=== PATIENT | male | born 1970 | race Caucasian/White ===

== ENCOUNTER → 2018-06-10 | Outpatient (CLI) | payer OTHER | LOC: FIMAGING 09:21 | PROVIDERS: ATTEND Internal Medicine Cardiovascular Disease | DX: Z13.9 Encounter for screening, unspecified (principal); I70.0 Atherosclerosis of aorta; Z82.49 Family history of ischemic heart disease and other diseases of the circulatory system ==

== ENCOUNTER 2018-07-07 09:09 | Day surgery (SDC) | payer BC, OTHER ==
[2018-07-07] MEDS ORDERED: BENZOCAINE UNIT DOSE SPRAY HURRICAINE MM ONE (09:15)
[2018-07-07] MEDS ORDERED: NS 500 ML IV ONE (09:15)
[2018-07-07] MEDS ORDERED: MIDAZOLAM 2 MG/2 ML VIAL IVP ONE (09:15)
[2018-07-07] MEDS ORDERED: fentaNYL 100 MCG/2 ML INJ IVP ONE (09:15)
[2018-07-07] MEDS ORDERED: LORazepam 1 MG TAB ONE (10:03)
[2018-07-07] MEDS ORDERED: LORazepam 2 MG/ML INJ IVP ONE (10:30)
--- NOTE | 2018-07-07 10:44 | PDHPUP ---
History & Physical Update H&P update statement: This history and physical update is based on an assessment of the patient which was completed after admission or registration (within 24 hours), but prior to the surgery/procedure. H&P update: H&P reviewed & patient examined, no change in patient's condition since H&P completed
--- NOTE | 2018-07-07 11:16 | PDANEPAE ---
ANE History of Present Illness 47 yo for janae ANE Past Medical History - Cardiovascular History Hx Hypertension: No Hx Arrhythmias: No Hx Chest Pain: No Hx Coronary Artery / Peripheral Vascular Disease: No Hx CHF / Valvular Disease: No Hx Palpitations: No - Pulmonary History Hx COPD: No Hx Asthma/Reactive Airway Disease: No Hx Recent Upper Respiratory Infection: No Hx Oxygen in Use at Home: No Hx Sleep Apnea: No - Neurologic History Neurologic History Comment: PTSD - Endocrine History Hx Diabetes: No ANE Review of Systems Review of Systems: - Exercise capacity METS (RN): 4 METS ANE Patient History - Allergies Allergies/Adverse Reactions: Cephalosporins Allergy (Verified 09/07/13 22:05) Sulfa (Sulfonamide Antibiotics) Allergy (Verified 09/07/13 22:05) - Home Medications Home Medications: Abilify 07/07/18 [Last Taken 07/06/18 11:00] Aspirin 81mg (*) 07/07/18 [Last Taken 07/06/18 14:00] Atorvastatin Calcium 07/07/18 [Last Taken 07/06/18 23:00] Clonazepam 07/07/18 [Last Taken 07/06/18 08:00] Gabapentin 07/07/18 [Last Taken 07/06/18 20:00] Prazosin HCl 07/07/18 [Last Taken 07/06/18 23:00] - NPO status NPO Status: no food or drink >8 hours - Anes Hx Anes Hx: no prior problems - Smoking Hx Smoking Status: Former smoker ANE Labs/Vital Signs - Vital Signs Height: 6 ft 2 in Weight: 93.894 kg ANE Physical Exam - Airway Neck exam: FROM Mallampati Score: Class 2 - Pulmonary Pulmonary: no respiratory distress - Cardiovascular Cardiovascular: regular rate and rhythym - ASA Status ASA Status: II ANE Anesthesia Plan Anesthesia Plan: GA with mask
[2018-07-07] MEDS ORDERED: PROPOFOL 200 MG/20 ML VIAL ONE (11:20)
--- NOTE | 2018-07-07 12:04 | POSTANESTH ---
Post Anesthetic Evaluation Cardiovascular Status: Normal, Stable Respiratory Status: Normal, Stable Level of Consciousness/Mental Status: Can Participate in Eval Pain Control: Adequate, Prn Tx Ordered Nausea/Vomiting Control: Adequate, Prn Tx Ordered Complications Possibly Related to Anesthesia: None Noted
--- NOTE | 2018-07-14 09:10 | ECHO ---
[email or web address] [address] [address] Main: [phone] Fax: Transesophageal Echocardiography Name: GIOVANNI NIXON MR#: [id number] Study Date: 07/07/2018 Study Time: 11:36 AM Date of : 1970 Age: 47 year(s) Height: ( ) Weight: ( ) BSA: Gender: Male Examination: JEFF Indication: Eval interatrial septum Image Quality: Contrast: Requested by: Ángel Galicia Heart Rate: Rhythm: Normal sinus rhythm BP: / Procedure Staff Meat Stringer: David Olvera RDCS Reading Physician: Ángel Galicia MD Requesting Provider: JEFF Exam Details Conclusions: The patient was in sinus rhythm at the time the study . Normal left ventricular size and function. LVEF estimated at 60 65% with normal wall motion. Normal LA, RA and RV dimensions. Two-dimensional imaging of the interatrial septum suggest a patent [place]. This is confirmed with agitated saline contrast indicating very small [id number]-inla shunt. Mild P2 prolapse of the mitral valve. Mild mitral regurgitation. Morphologically normal aortic, tricuspid and pulmonic valves without significant stenosis or insufficiency. Left atrial appendage free of thrombus. No evidence of pericardial effusion. Measurements: Chambers Valvular Assessment AV/MV Valvular Assessment TV/PV Normal Normal Normal Name Value Range Name Value Range Name Value Range Additional Measurements: Findings: Left Ventricle: Normal global systolic LV function. Right Ventricle: Normal RV function. Left Atrium: An agitated saline study was performed and was positive for intracardiac shunting. There is a small PFO. Patient: GIOVANNI NIXON Study Date: 07/07/2018 Page 1 of 2 11:36 AM Left Atrial Appendage: Good color flow doppler in the left atrial appendage. No thrombus in left appendage. Mitral Valve: Trivial mitral valve regurgitation. There is mild prolapse of the posterior leaflet of the mitral valve. Aortic Valve: The aortic valve is tri-leaflet and functions normally. Tricuspid Valve: The tricuspid valve is normal in appearance and function. Pulmonic Valve: The pulmonic valve is normal in appearance and function. Aorta: The aorta is normal. Pericardium: No pericardial effusion. l1n (No Signature Object) Patient: GIOVANNI NIXON Study Date: 07/07/2018 Page 2 of 2 11:36 AM [id number]
== END 2018-07-07 12:49 | disposition home or self-care (01) ==
LOC: FCATH 09:09
PROVIDERS: ATTEND Internal Medicine Cardiovascular Disease
PROC: B246ZZ4 Ultrasonography of Right and Left Heart, Transesophageal (ICD-10-PCS; principal; 2018-07-07)
DX: Q21.1 Atrial septal defect (principal); E78.5 Hyperlipidemia, unspecified; I25.10 Atherosclerotic heart disease of native coronary artery without angina pectoris; R94.31 Abnormal electrocardiogram [ECG] [EKG]
CPT/HCPCS: J2704